=== PATIENT | female | born 1985 | race Caucasian/White ===

== ENCOUNTER 2017-10-26 14:23 | Emergency (ER) | payer MEDICARE, OTHER ==
--- NOTE | 2017-10-26 15:14 | RAD ---
RIGHT ANKLE THREE VIEWS: History: Injury. Comparison: None. FINDINGS: No acute displaced fracture or malalignment. Mild lateral ankle mortise degenerative disease. Moderat e sized plantar calcaneal spur. IMPRESSION: No acute displaced fracture or malalignment. POS: SITA
--- NOTE | 2017-10-26 15:51 | RAD ---
RIGHT FOOT THREE VIEWS: 10/26/17 HISTORY: 32-year-old female with history of right foot injury following a fall. No evidence for acute fracture or dislocation. Small inferior calcaneal plantar enthesophyte. IMPRESSION: Unremarkable right foot. Minimal degenerative changes. POS: SITA
== END 2017-10-26 15:50 | disposition home or self-care (01) ==
LOC: NAV ERS 14:23
DX: S93.401A Sprain of unspecified ligament of right ankle, initial encounter (principal); E11.40 Type 2 diabetes mellitus with diabetic neuropathy, unspecified; F32.9 Major depressive disorder, single episode, unspecified; F90.9 Attention-deficit hyperactivity disorder, unspecified type; Z79.84 Long term (current) use of oral hypoglycemic drugs; Z79.899 Other long term (current) drug therapy; X50.1XXA Overexertion from prolonged static or awkward postures, initial encounter

== ENCOUNTER 2021-09-24 14:36 | Emergency (ER) | payer MEDICARE, MEDICAID ==
[2021-09-24] MEDS ORDERED: Sodium Chloride 0.9% 1,000 ML ONE (15:12)
== END 2021-09-24 16:18 | disposition home or self-care (01) ==
LOC: NAV ERS 14:36
DX: E86.0 Dehydration (principal); M94.0 Chondrocostal junction syndrome [Tietze]; E11.40 Type 2 diabetes mellitus with diabetic neuropathy, unspecified; Z79.899 Other long term (current) drug therapy
CPT/HCPCS: 93005; 96360; J7050